=== PATIENT | male | born 1995 | race Caucasian/White ===

== ENCOUNTER 2018-11-08 12:20 | Emergency (ER) | END 2018-11-08 14:31 | disposition home or self-care (01) ==

== ENCOUNTER 2019-02-10 19:38 | Emergency (ER) | payer OTHER ==
[~2019-02-10] VITALS: Wt 114.0 kg
[~2019-02-10 19:38] MED LIST: IBUP-1706; KETO120S5 TOP; SULF1TAB31 PO
[2019-02-11] MEDS ORDERED: BECL10.6 IH (01:32)
[2019-02-11] MEDS ORDERED: KETO120S3 TOP (01:32)
[2019-02-11] MEDS ORDERED: SULF1TAB31 PO (01:32)
[2019-02-11] MEDS ORDERED: D-ME118S24 PO (01:33)
--- NOTE | 2019-02-11 01:35 | ERD ---
ER Documentation Chief Complaint Chief Complaint sob, cough x3mo; worse since Sat. recent exposure to meningitis HPI 23-year-old male presents for shortness of breath and cough times 3 months. States that it is getting worse the past few days. He also reports dizziness for about 2 weeks. Patient also has a chronic scalp redness and itchiness. He states that he was recently exposed to meningitis and was given prophylactic antibiotic. ROS All systems reviewed and are negative except as per history of present illness. Medications Home Meds Active Scripts D-Methorphan Hb/P-Epd HCl/Bpm (Zwjxipinnh-Lxzvpjtymrt-Ob Syr) 118 Ml Syrup, 5 ML PO Q4H PRN for COUGH for 7 Days, #1 BOTTLE Prov:MAEGAN SAMUELS DO 02/11/19 Beclomethasone Dipropionate (Qvar Redihaler (40 MCG)) 10.6 Gm Hfa.aeroba, 10.6 GM IH BID for cough/shortness of breath, #1 INH Prov:MAEGAN SAMUELS 02/11/19 Sulfamethoxazole/Trimethoprim* (Bactrim Ds* Tablet) 1 Each Tablet, 1 TAB PO BID for scalp infection for 5 Days, #10 TAB Prov:MAEGAN SAMUELS DO 02/11/19 Ketoconazole* (Ketoconazole*) 2% - 120 Ml Shampoo, 1 APPLIC TOP DAILY for scalp infection for 7 Days, #1 BOTTLE WASH HAIR/SCALP AND RINSE OFF Prov:MAEAGN SAMUELS DO 02/11/19 Ketoconazole* (Nizoral*) 120 Ml Shampoo, 1 APPLIC TOP DAILY for 7 Days, #1 BOTTLE WASH HAIR/SCALP AND RINSE OFF Prov:MAEGAN SAMUELS 11/08/18 Sulfamethoxazole/Trimethoprim* (Bactrim Ds* Tablet) 1 Each Tablet, 1 TAB PO BID for scalp infection for 7 Days, #14 TAB Prov:MAEGAN SAMUELS DO 11/08/18 Reported Medications Ibuprofen* Susp (Motrin* Susp) 20 Mg/Ml Susp 01/16/11 Allergies Allergies: Coded Allergies: No Known Drug Allergies (Verified Allergy, Mild, 11/08/18) PMhx/Soc History of Surgery: No Anesthesia Reaction: No Hx Neurological Disorder: No Hx Respiratory Disorders: No Hx Cardiac Disorders: No Hx Psychiatric Problems: No Hx Miscellaneous Medical Probl: No Hx Alcohol Use: No Hx Substance Use: No Hx Tobacco Use: No Physical Exam Vitals Vital Signs Date Temp Pulse Resp B/P (MAP) Pulse Ox O2 O2 Flow FiO2 Time Delivery Rate 02/10/19 98.4 70 20 160/70 99 19:48 (100) Repeat blood pressure 133/87 Physical Exam Const: No acute distress Head: Atraumatic, scalp erythema diffusely with some flaking noted Eyes: Normal Conjunctiva ENT: Normal External Ears, bilateral tympanic membrane intact without erythema or bulging noted, nose and Mouth examination normal, no tonsillar swelling or exudate noted Neck: Full range of motion. No meningismus. Resp: Clear to auscultation bilaterally, no wheezing, rales, rhonchi Cardio: Regular rate and rhythm, no murmurs Skin: No petechiae or rashes Ext: No cyanosis, or edema Neur: Awake and alert Psych: Normal Mood and Affect Procedures/MDM Medical Decision Making: Differential diagnosis includes but not limited to upper respiratory infection, pneumonia, sepsis, meningitis, influenza. Patient appeared well on physical examination, nontoxic appearing. Lungs were clear to auscultation bilaterally. There is low suspicion for pneumonia, sepsis, meningitis. Chest X-ray 1V Interpreted by me: Soft Tissue: No acute abnormalities Bones: No acute abnormalities Mediastinum/Cardiac Silhouette/Lungs: No acute abnormalities Patient likely has an upper respiratory infection, likely viral. Therefore antibiotics not indicated. Discussed symptomatic treatment with patient who agrees with plan. Examination of the scalp was consistent with a folliculitis. Patient given prescription for supportive medication(s) and antibiotics and antifungal shampoo. Patient advised to follow up with PCP in 1-2 days. Patient advised to return to ED for new or worsening symptoms. Patient stable on discharge from the ED. Disclaimer: Inadvertent spelling and grammatical errors are likely due to EHR/dictation software use and do not reflect on the overall quality of patient care. Also, please note that the electronic time recorded on this note does not necessarily reflect the actual time of the patient encounter. Departure Diagnosis: Primary Impression: Cough Additional Impression: Folliculitis Condition: Fair Patient Instructions: Cough, Chronic, Uncertain Cause, (Adult), Folliculitis Referrals: [facility] YOU HAVE RECEIVED A MEDICAL SCREENING EXAM AND THE RESULTS INDICATE THAT YOU DO NOT HAVE A CONDITION THAT REQUIRES URGENT TREATMENT IN THE EMERGENCY DEPARTMENT. FURTHER EVALUATION AND TREATMENT OF YOUR CONDITION CAN WAIT UNTIL YOU ARE SEEN IN YOUR DOCTORS OFFICE WITHIN THE NEXT 1-2 DAYS. IT IS YOUR RESPONSIBILITY TO MAKE AN APPOINTMENT FOR FOLOW-UP CARE. IF YOU HAVE A PRIMARY DOCTOR --you should call your primary doctor and schedule an appointment IF YOU DO NOT HAVE A PRIMARY DOCTOR YOU CAN CALL OUR PHYSICIAN REFERRAL HOTLINE AT IF YOU CAN NOT AFFORD TO SEE A PHYSICIAN YOU CAN CHOSE FROM THE FOLLOWING [facility] [address] [facility] [address] [facility] [facility] [address] [facility] [address] [facility] [address] [facility] [facility]. [address] Additional Instructions: Call your primary care doctor TOMORROW for an appointment during the next 1-2 days.See the doctor sooner or return here if your condition worsens before your appointment time. Please follow up with primary provider and get referral to dermatology for scalp infection MAEGAN SAMUELS DO Feb 11, 2019 01:35
[2019-02-11 01:48] VITALS: BP 133/87; PULSE 69; RESP 20
== END 2019-02-11 01:49 | disposition home or self-care (01) ==
LOC: FTE 19:38
DX: L73.9 Follicular disorder, unspecified (principal)
CPT/HCPCS: 71046

== ENCOUNTER 2019-03-31 14:06 | Emergency (ER) | payer OTHER ==
[~2019-03-31] VITALS: Wt 100.0 kg
[~2019-03-31 14:06] MED LIST changes: +BECL10.6 IH; +D-ME118S24 PO; +KETO120S3 TOP
[2019-03-31 14:08] VITALS: BP 135/91; PULSE 88; RESP 16
[2019-03-31] MEDS ORDERED: ACET500C5 PO (15:34)
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
== END 2019-03-31 15:44 | disposition home or self-care (01) ==
LOC: FTE 14:06
DX: R51 Headache (principal)
CPT/HCPCS: 70450; Z7502